=== PATIENT | female | born 1965 | race Caucasian/White ===

== ENCOUNTER → 2023-02-23 | Outpatient (CLI) | payer OTHER ==
[~2023-02-23] MED LIST: Ativan1 MG SL; Hair, Skin & N1 EACH PO; METHI10 PO; RABE20 PO; Tenormin25 MG PO
== END | disposition home or self-care (01) ==
LOC: LAB SHORT 10:41 → PLD 10:41
DX: D48.5 Neoplasm of uncertain behavior of skin (principal)
CPT/HCPCS: 88305